=== PATIENT | female | born 1995 | race Caucasian/White ===

== ENCOUNTER 2017-04-24 03:11 | Emergency (ER) | payer OTHER ==
[~2017-04-24] VITALS: Ht 162.6 cm; Wt 58.0 kg
[~2017-04-24 03:11] MED LIST: LISD1CAP PO; SPRI28TA PO
[2017-04-24 03:13] VITALS: BP 130/66; PULSE 90; RESP 16; TEMP 99.2; O2SAT 100
[2017-04-24 03:30] VITALS: BP 120/63; PULSE 91; RESP 16; TEMP 98.9; O2SAT 100
[2017-04-24] MEDS ORDERED: CELE10TA PO (03:30)
[2017-04-24] MEDS ORDERED: HYDR-3133 PO (03:30)
--- NOTE | 2017-04-24 04:15 | PD ---
HPI Chief Complaint: General Weakness Time Seen by Provider: 03:33 Travel History International Travel<30 days: No Contact w/Intl Traveler<30days: No Traveled to known affect area: No History of Present Illness HPI The patient is a 21 year old female who presents to the [facility] emergency department with a history of 3 days of joint pain, body aches that have been associated with sinus pressure over her forehead and maxillary sinuses bilaterally. She denies having any associated postnasal drip, nasal discharge, fever, joint swelling or erythema, or rashes associated with this. She reports that she did get her influenza vaccination in the fall. The patient denies any cough, congestion, neck pain, chest pain, shortness of breath, abdominal pain, vomiting, diarrhea, urinary symptoms, or neurologic symptoms. The patient's joint pain is complicated by being diagnosed with osteoarthritis in the past, however she is followed by Dr.: Barrientos A local newspaper peddler as her rheumatoid factor testing was positive. She reports that she has been on hydroxychloroquine, however she does not take it consistently. When the pain recurred, she did start taking it 2 days ago. LMP: 2 weeks ago. PFSH Past Medical History Narrative Medical The patient's past medical history is significant for ADHD, OA-followed by Dr. Barrientos. High RA factors so placed on hydroxychloroquine. Dr. Swann. Hx Anticoagulant Therapy: No ADHD: Yes Arthritis: Yes Blood Disorders: No Cancer: No Cardiovascular Problems: No Chemotherapy: No Cerebrovascular Accident: No Diabetes: No Diminished Hearing: No Endocrine: No Genitourinary: No Hepatitis: No Hiatal Hernia: No Immune Disorder: No Musculoskeletal: Yes (ARTHRITIS?) Neurologic: Yes (ADHD) Reproductive: No Respiratory: No Immunizations Current: Yes Migraines: Yes Thyroid Disease: No ?: Unknown LMP: 03/2017 : 0 Past Surgical History Narrative Surgical The patient's past surgical history is significant for nose surgery. Hysterectomy: No Joint Replacement: No Pacemaker: No Other Surgery: Yes (nose job) Social History Alcohol Use: Yes (SOCIAL) Tobacco Use: No Substance Use: No Allergies-Medications (Allergen,Severity, Reaction): Coded Allergies: *MDRO Multi-Drug Resistant Organism (Unverified Adverse Reaction, Unknown , 10/16/16) MRSA 2008 Reported Meds & Prescriptions Reported Meds & Active Scripts Active Naproxen EC (Naproxen) 375 Mg Tabdr 375 Mg PO BID PRN Reported Hydroxyzine HCl 25 Mg Tab 25 Mg PO Q8HR Celexa (Citalopram Hydrobromide) 10 Mg Tab Unknown Dose PO DAILY Vyvanse (Lisdexamfetamine Dimesylate) 10 Mg Cap 20 Mg PO DAILY Sprintec 28 (Norgestimate-Ethinyl Estradiol) 0.25-35 mg-Mcg Tab 1 Tab PO DAILY Review of Systems Except as stated in HPI: all other systems reviewed are Neg General / Constitutional: No: Fever Eyes: No: Visual changes HENT: Positive: Headaches, Congestion, No: Rhinorrhea, Neck Stiffness, Neck Pain Cardiovascular: No: Chest Pain or Discomfort Respiratory: No: Shortness of Breath Gastrointestinal: No: Nausea, Vomiting, Diarrhea, Abdominal Pain Genitourinary: No: Dysuria Musculoskeletal: Positive: Arthralgias, Pain Skin: No Rash Neurologic: Positive: Headache, No: Weakness, Focal Abnormalities, Change in Mentation, Slurred Speech Psychiatric: No: Depression Endocrine: No: Polydipsia Hematologic/Lymphatic: No: Easy Bruising Physical Exam Narrative General: The patient is a well-developed well-nourished female in no acute distress. Head and Neck exam: Head is normocephalic atraumatic. Eyes: EOMI, pupils are equal round and reactive to light. Sinuses: The patient has tenderness on palpation of bilateral maxillary sinuses. Ears: Tympanic membrane on the left is slightly erythematous without any fluid posterior to it. Bilateral tympanic membranes have a good cone of light, no exudates. Nose: Midline septum with pink mucous membranes Mouth: Dentition unremarkable. Moist mucus membranes. Posterior oropharynx is not erythematous. No tonsillar hypertrophy. Uvula midline. Airway patent. Neck: No palpable lymphadenopathy. No nuchal rigidity. No thyromegaly. Cardiovascular: Regular rate and rhythm without murmurs, gallops, or rubs. Lungs: Clear to auscultation bilaterally. No wheezes, rhonchi, or rales. Abdomen: Soft, without tenderness to palpation in all 4 quadrants of the abdomen. No guarding, rebound, or rigidity. Normal bowel sounds are audible. No tenderness on palpation of McBurney's point. Extremities: No clubbing, cyanosis, or edema. 2+ pulses in all 4 extremities. The patient reports having joint pain in her hands, wrists, ankles, knees, and elbows. There is no swelling noted. No erythema noted. Back: No spinous process tenderness to palpation. No costovertebral angle tenderness to palpation. Neurologic Exam: Grossly nonfocal. Skin Exam: No rash noted. Intact skin that is warm and dry. Data Data Last Documented VS Vital Signs Date Time Temp Pulse Resp B/P Pulse Ox O2 Delivery O2 Flow Rate FiO2 04/24/17 03:30 98.9 91 16 120/63 100 Room Air Orders Complete Blood Count With Diff (04/24/17 04:21) Comprehensive Metabolic Panel (04/24/17 04:21) Urinalysis - C+S If Indicated (04/24/17 04:21) Westergren Sedimentation Rate (04/24/17 04:21) Iv Access Insert/Monitor (04/24/17 04:21) Ecg Monitoring (04/24/17 04:21) Oximetry (04/24/17 04:21) Ed Urine Pregnancytest Poc (04/24/17 04:21) Ketorolac Inj (Toradol Inj) (04/24/17 04:45) Labs Laboratory Tests Test 04/24/17 04/24/17 04:00 04:35 Urine Color YELLOW Urine Turbidity CLEAR Urine pH 6.0 Urine Specific [place] 1.019 Urine Protein NEG mg/dL Urine Glucose (UA) NEG mg/dL Urine Ketones NEG mg/dL Urine Occult Blood NEG Urine Nitrite NEG Urine Bilirubin NEG Urine Urobilinogen LESS THAN 2.0 MG/DL Urine Leukocyte Esterase NEG Microscopic Urinalysis Comment CULT NOT INDICATED White Blood Count 7.3 TH/MM3 Red Blood Count 3.82 MIL/MM3 Hemoglobin 11.0 GM/DL Hematocrit 32.9 % Mean Corpuscular Volume 86.0 FL Mean Corpuscular Hemoglobin 28.7 PG Mean Corpuscular Hemoglobin 33.3 % Concent Red Cell Distribution Width 12.8 % Platelet Count 224 TH/MM3 Mean Platelet Volume 8.0 FL Neutrophils (%) (Auto) 72.1 % Lymphocytes (%) (Auto) 16.6 % Monocytes (%) (Auto) 9.2 % Eosinophils (%) (Auto) 1.4 % Basophils (%) (Auto) 0.7 % Neutrophils # (Auto) 5.3 TH/MM3 Lymphocytes # (Auto) 1.2 TH/MM3 Monocytes # (Auto) 0.7 TH/MM3 Eosinophils # (Auto) 0.1 TH/MM3 Basophils # (Auto) 0.0 TH/MM3 CBC Comment DIFF FINAL Differential Comment Erythrocyte Sedimentation Rate 36 mm/hr Sodium Level 136 MEQ/L Potassium Level 3.9 MEQ/L Chloride Level 102 MEQ/L Carbon Dioxide Level 27.7 MEQ/L Anion Gap 6 MEQ/L Blood Urea Nitrogen 10 MG/DL Creatinine 0.68 MG/DL Estimat Glomerular Filtration 107 ML/MIN Rate Random Glucose 89 MG/DL Calcium Level 8.6 MG/DL Total Bilirubin 0.3 MG/DL Aspartate Amino Transf 10 U/L (AST/SGOT) Alanine Aminotransferase 15 U/L (ALT/SGPT) Alkaline Phosphatase 95 U/L Total Protein 7.2 GM/DL Albumin 3.3 GM/DL [facility] Medical Decision Making Medical Screen Exam Complete: Yes Emergency Medical Condition: Yes Medical Record Reviewed: Yes Differential Diagnosis Viral syndrome, versus with associated body aches, versus rheumatoid arthritis, versus other inflammatory arthritis Narrative Course During the course of the patients emergency department visit, the patients history, examination, and differential diagnosis were reviewed with the patient. The patient had IV access obtained and blood work sent for analysis. The patient was placed on a cardiac exercise physiologist with oximetry and blood pressure monitoring. The patient had a bedside test done that was negative. The patient was initially provided Toradol 15 mg IV for pain. The patients laboratory studies were reviewed and remarkable for a white count of 7.3, hemoglobin 11, platelets 224 with 72.1 neutrophils, 9.2 monocytes, sedimentation rate is elevated at 36, CMP is remarkable for an AST of 10, albumin 3.3. Urinalysis unremarkable. The patient was given a prescription for Naprosyn enteric-coated. The patient was instructed regarding the importance of close follow-up with her newspaper peddler for additional testing given her elevated sedimentation rate. She was given a copy of her laboratory studies at discharge. The patient is resting comfortably and feels better, is alert and in no distress. The patients results and examination findings were discussed with the patient. The repeat examination is unremarkable and benign. The history, exam, diagnostic testing, and current condition do not suggest any significant pathology to warrant further testing, continued ED treatment, admission, or surgical evaluation at this point. The vital signs have been stable. The patient does not have uncontrollable pain, intractable vomiting, or other significant symptoms. The patient's condition is stable and appropriate for discharge. The patient will pursue further outpatient evaluation with a primary care physician or other designated or consulting physician as indicated in the discharge instructions. The patient expressed understanding and was agreeable with this plan. Diagnosis Primary Impression: Arthralgia Qualified Code: M25.50 - Arthralgia, unspecified joint Additional Impressions: Sinus pressure Viral illness Referrals: Alejandro Barrientos MD 2 days Patient Instructions: Arthralgia (ED), General Instructions, Sinusitis (ED) Additional Instructions: The patient is instructed to use Flonase as written on the package for sinus pressure. Med/Other Pt SpecificInfo: Prescription(s) given Scripts Naproxen DR (Naproxen EC)375 Mg [id number] Mg PO BID PRN (PAIN GREATER THAN 5) # 10 TAB Ref 0 Prov:Keyona Arellano MD 04/24/17 Disposition: 01 DISCHARGE HOME Condition: Stable Keyona Arellano MD Apr 24, 2017 04:15
[2017-04-24] MEDS ORDERED: KETOROLAC TROMETHAMINE 30 MG/ML (IVP) VIAL IV PUSH ONE (04:45)
[2017-04-24 04:51] LABS: BLOOD, URINE NEG (NEG); GLUCOSE,URINE NEG (NEG); KETONE, URINE NEG (NEG); NITRITE,URINE NEG (NEG); URINE COLOR YELLOW (YELLW/STRAW)
[2017-04-24 04:51] LABS: AUTOMATED NEUTROPHIL # 5.3 TH/MM3 (1.8-7.7); BASOPHIL % 0.7 % (0.0-2.0); EOSINOPHIL # 0.1 TH/MM3 (0-0.4); EOSINOPHIL % 1.4 % (0.0-4.0); HEMATOCRIT 32.9 % (35.0-46.0); HEMO FLAGS DIFF FINAL; LYMPH % 16.6 % (9.0-44.0); LYMPHOCYTE # 1.2 TH/MM3 (1.0-4.8); MEAN CORPUSCULAR HEMOGLOBIN 28.7 PG (27.0-34.0); MEAN CORPUSCULAR HGB CONC 33.3 % (32.0-36.0); MONO % 9.2 % (0.0-8.0); NEUT % 72.1 % (16.0-70.0); PLATELET COUNT 224 TH/MM3 (150-450); RED BLOOD COUNT 3.82 MIL/MM3 (4.00-5.30); RED CELL DISTRIBUTION WIDTH 12.8 % (11.6-17.2); WHITE BLOOD COUNT 7.3 TH/MM3 (4.0-11.0)
[2017-04-24 04:52] LABS: COMMENT (UR) CULT NOT INDICATED; CULTURE IF INDICATED CULT NOT INDICATED
[2017-04-24 05:04] LABS: ANION GAP 6 MEQ/L (5-15); AST (GOT) 10 U/L (15-37); BICARBONATE 27.7 MEQ/L (21.0-32.0); BLOOD UREA NITROGEN 10 MG/DL (7-18); CHLORIDE 102 MEQ/L (98-107); GLOMERULAR FILTRATION RATE 107 ML/MIN (>89); POTASSIUM 3.9 MEQ/L (3.5-5.1); SODIUM (NA) 136 MEQ/L (136-145)
[2017-04-24 05:05] LABS: ALT (GPT) 15 U/L (10-53)
[2017-04-24 05:07] LABS: ALKALINE PHOSPHATASE 95 U/L (45-117); TOTAL BILIRUBIN ADULT 0.3 MG/DL (0.2-1.0)
[2017-04-24] MEDS ORDERED: NAPR-239 PO (05:51)
== END 2017-04-24 06:14 | disposition home or self-care (01) ==
LOC: NEPE 03:11
DX: M25.50 Pain in unspecified joint (principal); B34.9 Viral infection, unspecified
CPT/HCPCS: 80053; 81001; 84703; 85025; 85652; 96374; 99284; J1885

== ENCOUNTER 2017-05-27 23:34 | Emergency (ER) | payer OTHER ==
[~2017-05-27] VITALS: Ht 162.6 cm; Wt 59.6 kg
[~2017-05-27 23:34] MED LIST changes: +CELE10TA PO; +HYDR-3133 PO; +NAPR-239 PO
[2017-05-27 23:42] VITALS: BP 118/80; PULSE 90; RESP 14; TEMP 98.2; O2SAT 98
[2017-05-28] MEDS ORDERED: IBUP-1129 PO (00:14)
[2017-05-28] MEDS ORDERED: BACT800T5 PO (00:14)
--- NOTE | 2017-05-28 00:15 | PD ---
HPI Chief Complaint: Skin Problem Time Seen by Provider: 00:11 Travel History International Travel<30 days: No Contact w/Intl Traveler<30days: No Traveled to known affect area: No History of Present Illness HPI 21-year-old female patient with history of MRSA skin infection in the past, presents to the ER today several days after having a bug bite on the right leg which she states is getting more red and swollen. She denies any fevers or any other issues. Modifying Factors: None Associated Signs & Symptoms: Right leg bug bite, worsening redness and pain Risk Factors: History of MRSA PFSH Past Medical History Hx Anticoagulant Therapy: No ADHD: Yes Arthritis: Yes Blood Disorders: No Cancer: No Cardiovascular Problems: No Chemotherapy: No Cerebrovascular Accident: No Diabetes: No Diminished Hearing: No Endocrine: No Genitourinary: No Hepatitis: No Hiatal Hernia: No Immune Disorder: No Musculoskeletal: Yes (ARTHRITIS?) Neurologic: Yes (ADHD) Psychiatric: Yes (ADHD) Reproductive: No Respiratory: No Immunizations Current: Yes Migraines: Yes Thyroid Disease: No ?: Not LMP: 05/21/17 : 0 Past Surgical History Hysterectomy: No Joint Replacement: No Pacemaker: No Other Surgery: Yes (nose job) Social History Alcohol Use: Yes (SOCIAL) Tobacco Use: No Substance Use: No Allergies-Medications (Allergen,Severity, Reaction): Coded Allergies: *MDRO Multi-Drug Resistant Organism (Unverified Adverse Reaction, Unknown , 05/28/17) MRSA 2008 Reported Meds & Prescriptions Reported Meds & Active Scripts Active Reported Hydroxyzine HCl 25 Mg Tab 25 Mg PO Q8HR Celexa (Citalopram Hydrobromide) 10 Mg Tab Unknown Dose PO DAILY Vyvanse (Lisdexamfetamine Dimesylate) 10 Mg Cap 20 Mg PO DAILY Sprintec 28 (Norgestimate-Ethinyl Estradiol) 0.25-35 mg-Mcg Tab 1 Tab PO DAILY Review of Systems Except as stated in HPI: all other systems reviewed are Neg Physical Exam Narrative GENERAL: Well-developed pleasant young white female patient currently none acute distress. SKIN: Focused skin assessment warm/dry. There is a 3 cm area of erythema and wants them either area induration on the right lower leg area anteriorly. No underlying fluctuance. HEAD: Atraumatic. Normocephalic. EYES: Pupils equal and round. No scleral icterus. No injection or drainage. ENT: No nasal bleeding or discharge. Mucous membranes pink and moist. NECK: Trachea midline. No JVD. CARDIOVASCULAR: Regular rate and rhythm. No murmur appreciated. RESPIRATORY: No accessory muscle use. Clear to auscultation. Breath sounds equal bilaterally. GASTROINTESTINAL: Abdomen soft, non-tender, nondistended. Hepatic and splenic margins not palpable. MUSCULOSKELETAL: No obvious deformities. No clubbing. No cyanosis. No edema. NEUROLOGICAL: Awake and alert. No obvious cranial nerve deficits. Motor grossly within normal limits. Normal speech. PSYCHIATRIC: Appropriate mood and affect; insight and judgment normal. Data Data Last Documented VS Vital Signs Date Time Temp Pulse Resp B/P Pulse Ox O2 Delivery O2 Flow Rate FiO2 05/27/17 23:42 98.2 90 14 118/80 98 MDM Medical Decision Making Medical Screen Exam Complete: Yes Emergency Medical Condition: Yes Medical Record Reviewed: Yes Differential Diagnosis Cellulitis versus abscess Narrative Course I am not able to palpate obvious abscess at this point. My plan would be to treat her with by mouth antibiotics. Her review of previous MRSA infection shows that it is sensitive to Bactrim. My plan would be to start on Bactrim and have her return for any worsening in redness, pain, and as needed. The plan has been discussed with the patient and she states understanding. Diagnosis Primary Impression: Cellulitis of right leg Med/Other Pt SpecificInfo: Prescription(s) given Scripts Ibuprofen (Motrin Ib)200 Mg [id number] Mg PO QID PRN (PAIN SCALE 1 TO 10) #20 Prov:Zak James MD 05/28/17 Sulfamethoxazole-Trimethoprim (Bactrim DS)800-160 Mg Tab1 Tab PO BID #14 TAB Ref 0 Prov:Zak James MD 05/28/17 Disposition: DISCHARGE HOME Condition: Stable Zak James MD May 28, 2017 00:15
== END 2017-05-28 00:24 | disposition home or self-care (01) ==
LOC: PHED 23:34
DX: L03.115 Cellulitis of right lower limb (principal); Z86.14 Personal history of Methicillin resistant Staphylococcus aureus infection
CPT/HCPCS: 99283